=== PATIENT | male | born 1985 | race Caucasian/White ===

== ENCOUNTER 2017-04-09 23:19 | Inpatient (IN) | payer MEDICAID ==
[~2017-04-09] VITALS: Ht 177.8 cm; Wt 183.4 kg
[2017-04-09] MEDS ORDERED: HYDROCODONE/APAP 10-325 MG TABLET PO ONE (23:45)
[2017-04-09] MEDS ORDERED: NITROGLYCERIN OINT 1 GM PACKET TP ONE (23:45)
[2017-04-09] MEDS ORDERED: ASPIRIN 81 MG TAB.CHEW PO ONE (23:45)
[2017-04-09] MEDS ORDERED: NITROGLYCERIN 0.4 MG/TAB BOTTLE SL ONE (23:45)
[2017-04-09 23:51] LABS: BASOPHILS % (AUTO) 0.5 % (0.0-2.0); HEMATOCRIT 46.2 % (36.7-47.1); LYMPHOCYTES # (AUTO) 1.2 K/uL (20.0-40.0); LYMPHOCYTES % (AUTO) 25.1 % (20.5-51.5); MEAN CORPUSCULAR HEMOGLOBIN 28.4 uug (23.8-33.4); MEAN CORPUSCULAR HGB CONC 35 g/dL (32.5-36.3); MONOCYTES # (AUTO) 0.4 K/uL (2.0-10.0); MONOCYTES % (AUTO) 8.3 % (0.0-11.0); NEUTROPHILS # (AUTO) 3.2 K/uL (1.8-8.9); NEUTROPHILS % (AUTO) 66.1 % (38.5-71.5); PLATELET COUNT (AUTO) 192 K/uL (152-348); RED BLOOD CELL COUNT(AUTO) 5.63 MIL/uL (4.06-5.63); WHITE BLOOD COUNT (AUTO) 4.8 K/uL (3.6-10.2)
[2017-04-09] MEDS ORDERED: ASPIRIN 81 MG TAB.CHEW ONE (23:53)
[2017-04-09] MEDS ORDERED: HYDROCODONE/APAP 10-325 MG TABLET ONE (23:53)
[2017-04-09 23:55] LABS: CREATININE 0.8 mg/dL (0.6-1.3); POTASSIUM 4.2 mmol/L (3.5-5.1)
[2017-04-10 00:07] LABS: BILIRUBIN,DIRECT 0.1 mg/dL (0.0-0.2); BILIRUBIN,TOTAL 0.3 mg/dL (0.2-1.0)
[2017-04-10 00:27] LABS: *OCCULT BLOOD STOOL POSITIVE (NEGATIVE)
[2017-04-10] MEDS ORDERED: LEVOFLOXACIN 750 MG/D5W 150 ML PIGGYBACK IV ONE (00:30)
[2017-04-10] MEDS ORDERED: LEVOFLOXACIN 750MG/D5W 150 ML IV ONE ×2 (00:40→03:19)
[2017-04-10] MEDS ORDERED: LORAZEPAM 2 MG/1 ML VIAL IV ONE (01:15)
[2017-04-10] MEDS ORDERED: LORAZEPAM 2 MG/1 ML VIAL ONE (01:20)
[2017-04-10] MEDS ORDERED: ACETAMINOPHEN 325 MG TABLET PO PRN (02:00)
[2017-04-10] MEDS ORDERED: ONDANSETRON 4 MG/2 ML VIAL IV PRN (02:00)
[2017-04-10] MEDS ORDERED: HYDROCODONE/APAP 5-325MG TABLET PO PRN (02:00)
[2017-04-10] MEDS ORDERED: MAGNESIUM HYDROXIDE 30 ML LIQUID UDC PO PRN (02:00)
[2017-04-10] MEDS ORDERED: ZOLPIDEM 5 MG TABLET PO PRN (02:00)
[2017-04-10] MEDS ORDERED: Z GUARD REMEDY PASTE 57 GM TUBE TOP PRN (02:00)
[2017-04-10 02:19] VITALS: BP 125/73
[2017-04-10] MEDS: IV NS 1000 ML 1,000 ML IV PRN ×2 (05:09→22:15)
[2017-04-10 09:05] VITALS: BP 112/33
[2017-04-10 11:47] VITALS: BP 118/67
[2017-04-10] MEDS: CARISOPRODOL 350 MG TABLET PO PRN ×2 (13:40→19:03)
[2017-04-10] MEDS: HYDROCODONE/APAP 5-325MG TABLET PO PRN ×3 (13:40→22:16)
[2017-04-10 15:47] VITALS: BP 112/67
[2017-04-10 20:00] VITALS: BP 139/78
[2017-04-10] MEDS: IPRATROPIUM BROMIDE 0.5 MG/2.5 ML NEBU NEB PRN (20:20)
[2017-04-10] MEDS: ALBUTEROL SULFATE 2.5 MG/3 ML NEBU NEB PRN (20:20)
[2017-04-10] MEDS ORDERED: LEVOFLOXACIN 750MG/D5W 750 MG in PREMIXED 1 EACH IV SCH (23:00)
[2017-04-11] MEDS: CARISOPRODOL 350 MG TABLET PO PRN ×2 (04:12→09:48)
[2017-04-11] MEDS: IPRATROPIUM BROMIDE 0.5 MG/2.5 ML NEBU NEB PRN (05:27)
[2017-04-11] MEDS: ALBUTEROL SULFATE 2.5 MG/3 ML NEBU NEB PRN (05:27)
[2017-04-11] MEDS: HYDROCODONE/APAP 5-325MG TABLET PO PRN ×2 (05:37→09:48)
[2017-04-11 07:01] LABS: BASOPHILS % (AUTO) 0.4 % (0.0-2.0); EOSINOPHILS % (AUTO) 0.2 % (0.0-7.0); HEMATOCRIT 43.4 % (36.7-47.1); HEMOGLOBIN 14.7 g/dL (12.5-16.3); LYMPHOCYTES # (AUTO) 1.5 K/uL (20.0-40.0); LYMPHOCYTES % (AUTO) 34.4 % (20.5-51.5); MEAN CORPUSCULAR HEMOGLOBIN 28.4 uug (23.8-33.4); MEAN CORPUSCULAR HGB CONC 34 g/dL (32.5-36.3); MEAN CORPUSCULAR VOLUME 83.9 fL (73.0-96.2); MONOCYTES # (AUTO) 0.3 K/uL (2.0-10.0); MONOCYTES % (AUTO) 6.6 % (0.0-11.0); NEUTROPHILS # (AUTO) 2.5 K/uL (1.8-8.9); NEUTROPHILS % (AUTO) 58.4 % (38.5-71.5); PLATELET COUNT (AUTO) 183 K/uL (152-348); RED BLOOD CELL COUNT(AUTO) 5.17 MIL/uL (4.06-5.63); WHITE BLOOD COUNT (AUTO) 4.2 K/uL (3.6-10.2)
[2017-04-11 07:16] LABS: CARBON DIOXIDE 32 mmol/L (21-32); CHLORIDE 96 mmol/L (98-107); CHOLESTEROL 179 mg/dL (<200); CREATININE 0.7 mg/dL (0.6-1.3); GLUCOSE 197 mg/dL (74-106); HDL CHOLESTEROL 20 mg/dL (40-60); MAGNESIUM 1.8 mg/dL (1.8-2.4); PHOSPHOROUS 2.8 mg/dL (2.5-4.9); TRIGLYCERIDES 602 MG/DL (30-150); UREA NITROGEN, BLOOD 7 mg/dL (7-18)
[2017-04-11 07:40] LABS: THYROID STIMULATING HORMONE 2.699 mIU/mL (0.358-3.740)
[2017-04-11] MEDS ORDERED: HYDROCODONE/APAP 10-325 MG TABLET PO PRN (11:00)
[2017-04-11] MEDS ORDERED: LEVO750T21 PO (11:33)
[2017-04-11 11:35] VITALS: BP 138/86
== END 2017-04-11 12:55 | disposition home or self-care (01) | DRG 139 ==
LOC: ER 23:23 → TELE 04-10 01:40 → MED 04-10 15:10
PROVIDERS: ATTEND Internal Medicine
DX: J15.9 Unspecified bacterial pneumonia (principal); J96.01 Acute respiratory failure with hypoxia; E43 Unspecified severe protein-calorie malnutrition; K92.0 Hematemesis; E66.2 Morbid (severe) obesity with alveolar hypoventilation; Z68.43 Body mass index [BMI] 50.0-59.9, adult; F17.210 Nicotine dependence, cigarettes, uncomplicated; E87.1 Hypo-osmolality and hyponatremia; E11.65 Type 2 diabetes mellitus with hyperglycemia; E78.5 Hyperlipidemia, unspecified; Z88.2 Allergy status to sulfonamides; J20.9 Acute bronchitis, unspecified; Z82.49 Family history of ischemic heart disease and other diseases of the circulatory system; Z83.3 Family history of diabetes mellitus; J45.909 Unspecified asthma, uncomplicated; G89.29 Other chronic pain; M54.9 Dorsalgia, unspecified
CPT/HCPCS: 36415; 70030-TC; 71045; 78579; 83735; 84100; 84443; 85025; 87040; 93005; 93307; 94640; 94664; A4663; A9540; A9567; J1956; J2060; J3490; J3590; J7030